=== PATIENT | female | born 1945 | race Caucasian/White ===

== ENCOUNTER 2025-09-13 14:32 | Observation (INO) ==
--- NOTE | 2025-09-13 14:51 | Emergency Department Note ---
Impression & Plan Atrial fibrillation with rapid ventricular response, Acute exacerbation of CHF (congestive heart failure), Elevated brain natriuretic peptide (BNP) level ED Provider Note HISTORY OF PRESENT ILLNESS: Patient is a 80-year-old female presenting with shortness of breath and sweats. Patient reports that she was recently diagnosed with A-fib. She is on Eliquis and metoprolol. Reports for the last 4 days she has been having "cold sweats." She states that "I am soaking through bed sheets and all of my close. States she feels very short of breath. She states that she has had 2 episodes of "heart cramps" over the last 4 days. Her last episode was yesterday. Locates the cramping pain to the left upper chest. Denies any history of DVT or PE. She has noted that her left lower extremity is more swollen than her right lower extremity over the last few days. She is not on any diuretics. She states she feels like she just cannot catch her breath. She states that she is scheduled for an ablation on 09/22/2025. She had called her publications editor who recommended that she take an extra dose of her metoprolol, but given her continued symptoms, she decided to come and get evaluated. She denies any lightheadedness or dizziness. Denies any measured fevers but does report the sweats. Denies any abdominal pain but does report she started having diarrhea today. She states she has been nauseous but has not had any vomiting. Denies any dysuria or hematuria. ROS: as above PHYSICAL EXAM: Constitutional: Patient appears in no acute distress. HENT: Head: Normocephalic and atraumatic. Eyes: EOMI, PERRL Mouth/Throat: Mucous membranes moist. Neck: Trachea midline. Neck supple. Cardiovascular: Tachycardic with irregularly irregular rhythm. No murmurs, rubs or gallops. Intact distal pulses. Pulmonary/Chest: No respiratory distress. Breath sounds clear and equal bilaterally. No wheezes or rales. Abdominal: Abdomen soft, no tenderness, rebound or guarding. Musculoskeletal: No edema, tenderness or deformity noted. Skin: Warm and dry. No rash, erythema, pallor or cyanosis Psychiatric: Appropriate mood and affect for situation. Neurological: Alert and keenly responsive. CN II-XII grossly intact, moving all extremities equally and fully. MDM: - Vitals signs showed hypertension and tachycardia. - History obtained via patient. History as above. - Chronic conditions affecting care: HTN; paroxysmal Afib; reduced EF - Differential diagnoses include, but are not limited to: electrolyte abnormality; dysrhythmia; viral syndrome; CHF exacerbation; pneumonia; ACS - Order placed for continuous cardiac monitoring. At this time, monitor showed rate of 147 bpm with irregular rhythm, per my interpretation. - External medical records reviewed. Echocardiogram dated 08/27/2025 was reviewed. Patient has a moderately reduced EF at 35 to 40%. Cardiology visit note dated 09/09/2025 was reviewed. Patient follows in their clinic for her paroxysmal A-fib and decreased systolic function. She was diagnosed with A-fib in July 2025. She is scheduled for cardioversion in September. She was discontinued on the diltiazem given her low ejection fraction and started on 50 mg of metoprolol succinate daily at that visit. - EKG image interpreted by myself showed atrial fibrillation. Rate 154 bpm. QT 242. No acute ischemic changes. - IV access obtained and laboratory workup obtained. Patient's blood pressure is stable but she is significantly tachycardic with an irregular rhythm consistent with A-fib. Her heart rate is ranging from 130 to 169 bpm. Given her reduced ejection fraction, decision was made to start with Lopressor for attempted rate control. She is given 5 mg of IV Lopressor with minimal improvement in her heart rate from the 160s to the 140s. An additional second dose of 5 mg IV Lopressor ordered and patient was given an extra dose of her metoprolol succinate 50 mg. - Laboratory workup interpreted by myself showed normal WBC; stable electrolytes; elevated BNP (502); normal troponin; normal TSH - Viral respiratory panel negative - CXR image reviewed interpreted by myself showed elevated pulmonary vascular congestion, per my interpretation. Radiology notes CHF exacerbation and small bilateral pleural effusions. - Patient's HR remains 110-130 bpm with irregular rhythm. No significant electrolyte abnormalities. Given 20 mg of IV Lasix for initiation of diuresis. Will discuss case with hospitalist service for further evaluation and management. - Discussion was had with spring encaser about patient's case and need for admission - Hospitalist, Dr. Castellanos, consulted for admission at 16:50. - Patient admitted to [facility] hospitalist service for further evaluation and management. I have personally spent 43 minutes of critical care time in the direct management of this patient. This includes bedside care, interpretation of diagnostic studies, and testing, discussion with consultants, patient, and family members, and other required patient management activities. This 43 minutes is in excess of all separately billable procedures. ASSESSMENT AND PLAN: Diagnosis: Afib with RVR; acute CHF exacerbation; elevated BNP Plan: admit Past Med/Surg History Problem List (Updated 09/13/25 @ 16:42 by Sierra Rivers MD) Elevated brain natriuretic peptide (BNP) level (Acute) Acute exacerbation of CHF (congestive heart failure) (Acute) Atrial fibrillation with rapid ventricular response (Acute) Atrial fibrillation History of postmenopausal HRT Vasomotor symptoms due to menopause Chronic, continuous use of opioids Left lower lobe pulmonary nodule Hypertension Insomnia Arthritis Interstitial cystitis Medical History (Updated 09/13/25 @ 16:42 by Sierra Rivers MD) No pertinent past medical history Surgical History (Updated 06/26/25 @ 09:09 by Leia Pérez MD, FACOG) H/O wisdom tooth extraction S/P total knee arthroplasty S/P FRANNIE-BSO age 59 Hx of tonsillectomy Family History Aunt Breast cancer Mother Myocardial infarction Hypertension Father Prostate cancer Diabetes Hypertension Sister Hypertension Denies family history of Ovarian cancer Colorectal cancer Social History Smoking Status: Never smoker Second Hand Exposure: No; Do You Dip or Chew Tobacco: No; Hx Alcohol Use: Yes Alcohol type: wine Alcohol Intake Frequency: Monthly or Less Hx Substance Use: No Preferred Language: Serbian Communication Ability: Effective Visual Impairment: No Limitations Hearing Ability: Normal Property Custodian Required: No marital status: / Current Living Situation: Significant Other current occupational status: retired current occupation: used to work as a dietary worker, 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 [place] How many Children do You have: 2 Feels Safe at Home: Yes Childhood Exposure to Second-Hand Smoke: Yes Diet: regular caffeine: Yes during the past year weight has: remained stable Dental Care, Regularly: No Physical Activity Frequency: Daily Seatbelt Use: always Sunscreen Use: Yes (sometimes ) Assistive Devices: Glasses Allergies Allergies Allergy/AdvReac Type Severity Reaction Status Date / Time No Known Allergies Allergy Verified 09/09/25 14:08 Home Meds Home Medications Medication Instructions Recorded Confirmed sodium bicarbonate 4.2 % 0 meq UD 03/24/24 09/13/25 intravenous solution amitriptyline 150 mg tablet 150 mg PO HS 09/13/25 09/13/25 cyclobenzaprine 10 mg tablet 10 mg PO HS PRN Muscle Spasm 09/13/25 09/13/25 dicyclomine 10 mg capsule 10 mg PO BID PRN Abdominal 09/13/25 09/13/25 Discomfort hydroxyzine HCl 50 mg tablet 50 mg PO DAILY PRN cystitis 09/13/25 09/13/25 lidocaine HCl 20 mg/mL (2 %) See Rx Instructions .Route .COMPLEX 09/13/25 09/13/25 injection solution meloxicam 15 mg tablet 15 mg PO DAILY PRN Pain 09/13/25 09/13/25 metoprolol succinate 50 mg 50 mg PO HS 09/13/25 09/13/25 tablet,extended release 24 hr pentosan polysulfate sodium 100 mg 100 mg PO QAM 09/13/25 09/13/25 capsule (Elmiron) pentosan polysulfate sodium 100 mg 200 mg PO HS 09/13/25 09/13/25 capsule (Elmiron) ropinirole 0.25 mg tablet 0.125 mg PO HS 09/13/25 09/13/25 Previous Rx's Medication Instructions Recorded SpeediCath Standard - Lubricated #10 ea 05/11/22 8/2.7 mm needle (disp) 18 G 18 gauge x 1 #120 ea 05/24/22 1/2" (BD PrecisionGlide Non-Sterile) syringe with needle, safety 10 mL #50 ea 05/25/23 21 gauge x 1 1/2" (Easy Touch SheathLock Syringe with Needle) syringe (disposable) 10 mL (BD #120 ea 10/01/24 Luer-Renee Tip Control Syringe) syringe (disposable) 60 mL (Easy #100 ea 10/01/24 [place]odi[place] Catheter Tip Syringe) sulfamethoxazole 800 1 tab PO BID PRN dental visit #60 12/05/24 mg-trimethoprim 160 mg tablet tabs (Bactrim DS) Vivelle-Dot 0.075 mg/24 hr 1 patch transdermal .TWICE WEEKLY 06/12/25 transdermal patch (estradiol) #8 ea methenam 118 mg-m.blue 10 See Rx Instructions .Route 08/05/25 mg-s.phos 40.8 mg-p.salic 36 .COMPLEX #30 caps mg-hyos capsule (Uro-MP) apixaban 5 mg tablet (Eliquis) 5 mg PO BID #60 tabs 08/11/25 oxycodone 20 mg tablet,crush 20 mg PO TID PRN pain (scale score 08/14/25 resistant,extended release 12 hr 7-10) #90 tabs Results & Data (ED) Vital Signs Vital Signs - 24 hr 09/13/25 14:33 09/13/25 14:47 09/13/25 14:53 Temperature 36.7 C Temperature Source Temporal Artery Scan Pulse Rate 139 H 143 H 147 H Pulse Rate [Apical] Respiratory Rate 18 21 Respiratory Effort / Characteristics Non-Labored Spontaneous Respiratory Depth Normal Respiratory Pattern Regular Blood Pressure 145/109 H 156/123 H Blood Pressure [Right Arm] Blood Pressure Mean 121 Blood Pressure Mean [Right Arm] Blood Pressure Position [Right Arm] Pulse Oximetry 95 Oxygen Delivery Method Room Air Sepsis Recent Fever Within 48 Hours No Sepsis New/Unexplained Change in Mental Status N/A Sepsis Action Taken by Nursing No Action Required 09/13/25 15:06 09/13/25 15:17 09/13/25 15:17 Temperature Temperature Source Pulse Rate 133 H 133 H 121 H Pulse Rate [Apical] Respiratory Rate Respiratory Effort / Characteristics Respiratory Depth Respiratory Pattern Blood Pressure 135/106 H 135/106 H 121/96 Blood Pressure [Right Arm] Blood Pressure Mean Blood Pressure Mean [Right Arm] Blood Pressure Position [Right Arm] Pulse Oximetry Oxygen Delivery Method Sepsis Recent Fever Within 48 Hours Sepsis New/Unexplained Change in Mental Status Sepsis Action Taken by Nursing 09/13/25 15:18 09/13/25 15:30 09/13/25 15:45 Temperature Temperature Source Pulse Rate Pulse Rate [Apical] 122 H 106 H Respiratory Rate 12 16 Respiratory Effort / Characteristics Non-Labored Spontaneous Non-Labored Spontaneous Respiratory Depth Normal Respiratory Pattern Regular Blood Pressure Blood Pressure [Right Arm] 121/96 132/100 Blood Pressure Mean Blood Pressure Mean [Right Arm] 104 110 Blood Pressure Position [Right Arm] Lying Lying Pulse Oximetry 98 97 94 Oxygen Delivery Method Room Air Room Air Room Air Sepsis Recent Fever Within 48 Hours Sepsis New/Unexplained Change in Mental Status Sepsis Action Taken by Nursing 09/13/25 16:13 Temperature Temperature Source Pulse Rate 116 H Pulse Rate [Apical] Respiratory Rate Respiratory Effort / Characteristics Respiratory Depth Respiratory Pattern Blood Pressure Blood Pressure [Right Arm] Blood Pressure Mean Blood Pressure Mean [Right Arm] Blood Pressure Position [Right Arm] Pulse Oximetry Oxygen Delivery Method Sepsis Recent Fever Within 48 Hours Sepsis New/Unexplained Change in Mental Status Sepsis Action Taken by Nursing Laboratory Data 09/13/25 15:42 09/13/25 15:42 Lab Results 09/13/25 09/13/25 Range/Units 14:43 15:42 WBC 8.07 (4.8-10.8) K/ul RBC 4.92 (4.20-5.40) M/uL Hgb 14.7 (12.0-16.0) g/dL Hct 44.8 (37.0-47.0) % MCV 91.1 (80.0-100.0) fL MCH 29.9 (25.0-34.0) pg MCHC 32.8 (32.0-36.0) g/dL RDW Std Deviation 46.3 (36.4-46.3) fL RDW Coeff of Adeola 14.0 (11.5-14.5) % Plt Count 191 (130-400) K/uL MPV 12.3 (9.4-12.4) fL Immature Gran % (Auto) 0.6 % Neut % (Auto) 61.5 % Lymph % (Auto) 25.8 % [place] % (Auto) 9.9 % Eos % (Auto) 1.5 % Baso % (Auto) 0.7 % Neut # (Auto) 4.96 (1.40-6.50) K/uL Lymph # (Auto) 2.08 (1.20-3.40) K/uL [place] # (Auto) 0.80 H (0.11-0.59) K/uL Eos # (Auto) 0.12 (0.00-0.50) K/uL Baso # (Auto) 0.06 (0.00-0.20) K/uL Immature Gran # (Auto) 0.05 (0.01-0.20) K/uL Sodium 137 (136-145) mmol/L Potassium 4.8 (3.5-5.1) mmol/L Chloride 104 (98-107) mmol/L Carbon Dioxide 26 (21-32) mmol/L Anion Gap 7 (3-11) BUN 13 (6-23) mg/dl Creatinine 0.85 (0.6-1.2) mg/dl Est Cr Clr Drug Dosing 60.0 ml/min eGFR 69.65 BUN/Creatinine Ratio 15.3 (10-20) Glucose 136 H (70-99(Fasting)) mg/dl Calcium 9.0 (8.6-10.3) mg/dl Magnesium 1.8 (1.7-2.4) mg/dl Total Bilirubin 0.8 (0.2-1.0) mg/dl AST 25 (13-39) U/L ALT 19 (7-52) U/L Alkaline Phosphatase 68 (34-104) U/L Troponin I High Sens 8.1 (0-14) pg/ml B-Natriuretic Peptide 502 H (0-100) pg/ml Total Protein 6.4 (6.0-8.3) gm/dl Albumin 4.0 (3.4-5.0) gm/dl Globulin 2.4 L (2.5-4.0) gm/dl Albumin/Globulin Ratio 1.7 (0.9-2) Lipase 5 L (11-82) U/L TSH 2.068 (0.300-4.500) uIu/ml Adenovirus (PCR) Not Detected (NotDetected) B. pertussis DNA (PCR) Not Detected (NotDetected) B.parapertussis DNA PCR Not Detected (NotDetected) C. pneumoniae DNA (PCR) Not Detected (NotDetected) Coronavirus OC43 (PCR) Not Detected (NotDetected) Coronavirus HKU1 (PCR) Not Detected (NotDetected) Coronavirus 229E (PCR) Not Detected (NotDetected) SARS-CoV-2 (PCR) Not Detected (NotDetected) Coronavirus NL63 (PCR) Not Detected (NotDetected) Human Metapneumovir PCR Not Detected (NotDetected) Influenza Type A (PCR) Not Detected (NotDetected) Influenza Type B (PCR) Not Detected (NotDetected) M. pneumoniae (PCR) Not Detected (NotDetected) Parainfluenza 1 (PCR) Not Detected (NotDetected) Parainfluenza 2 (PCR) Not Detected (NotDetected) Parainfluenza 3 (PCR) Not Detected (NotDetected) Parainfluenza 4 (PCR) Not Detected (NotDetected) RSV (PCR) Not Detected (NotDetected) Entero/Rhino (PCR) Not Detected (NotDetected) Administered Medications Discontinued Medications Furosemide (Furosemide Inj 20 Mg/2 Ml Vial) 20 mg IV ONE ONE Stop: 09/13/25 16:40 Last Admin: 09/13/25 16:42 Dose: 20 mg Documented By: [facility] Metoprolol Succinate (Metoprolol Succ 50mg Ext Rel Tab) 50 mg PO NOW STA Stop: 09/13/25 14:55 Last Admin: 09/13/25 15:20 Dose: 50 mg Documented By: [facility] Metoprolol Tartrate (Metoprolol Tartrate 1 Mg/Ml Vial) 5 mg IV NOW STA Stop: 09/13/25 14:38 Last Admin: 09/13/25 14:53 Dose: 5 mg Documented By: [facility] Metoprolol Tartrate (Metoprolol Tartrate 1 Mg/Ml Vial) 5 mg IV NOW STA Stop: 09/13/25 14:55 Last Admin: 09/13/25 15:06 Dose: 5 mg Documented By: [facility] Imaging Data Radiologist's Impression: Chest X-Ray 09/13/25 14:37 Exam: AP Portable Chest Exam reason: Nonspecific chest pain Comparison: No prior examinations available for comparison Technique: A single AP portable view of the chest was obtained Findings: The lungs are well-expanded. There is mild acute prominence of the central pulmonary vasculature. There is mild cardiomegaly. The cardiac and mediastinal silhouettes are within normal limits. There is no pneumothorax and no acute bony abnormalities are seen. Impression: 1. CHF exacerbation. 2. Small bilateral pleural effusions. Electronically signed by Chirag Beck 09-13-2025 3:42 PM Discharge Plan Visit Data Chief Complaint: Cardiac Assessment Stated Complaint: HEART- AFIB ED Provider: Sierra Rivers Discharge Problem: Atrial fibrillation with rapid ventricular response, Acute exacerbation of CHF (congestive heart failure), Elevated brain natriuretic peptide (BNP) level Patient Disposition: Admitted As Inpatient Condition: Fair Forms Stand Alone Forms: [facility] Prescriptions Prescriptions: No Action (DME) SpeediCath Standard - Lubricated 8/2.7 mm See Rx Instructions .Route .MEDSUPPLY Qty: 10 3RF Rx Instructions: As directed (DME) BD PrecisionGlide Non-Sterile 18 gauge x 1 1/2" needle See Rx Instructions .Route Qty: 120 0RF Rx Instructions: use twice daily (DME) BD Luer-Renee Tip Control Syring 10 mL syringe See Rx Instructions .Route Qty: 120 0RF Rx Instructions: twice daily (DME) syringe (disposable) [Easy [place] Catheter Tip Syring] 60 mL syringe See Rx Instructions .Route Qty: 100 3RF Rx Instructions: NEEDED OR DIRECTED estradiol [Vivelle-Dot] 0.075 mg/24 hr patch semiweekly 1 patch transdermal .TWICE WEEKLY Qty: 8 0RF Uro-MP 118-10-40.8-36 mg capsule See Rx Instructions .ROUTE .COMPLEX Qty: 30 3RF Dose Instruction: TAKE ONE CAPSULE BY MOUTH THREE TIMES A DAY NEEDED FOR BLADDER PAIN. ADMNISTER WITH PLENTY OF FLUIDS Rx Instructions: TAKE ONE CAPSULE BY MOUTH THREE TIMES A DAY NEEDED FOR BLADDER PAIN. ADMNISTER WITH PLENTY OF FLUIDS oxycodone 20 mg tablet,oral only,ext.rel.12 hr 20 mg PO TID PRN (Reason: pain (scale score 7-10)) Qty: 90 0RF Hold Instructions: Home Medication placed on hold at Doctor's office (DME) Easy Touch SheathLock Syrg-Ndl 10 mL 21 gauge x 1 1/2" syringe See Rx Instructions .Route Qty: 50 3RF Rx Instructions: USE NEEDED OR DIRECTED sodium bicarbonate 4.2 % solution 0 meq UD Rx Instructions: used vaginally sulfamethoxazole-trimethoprim [Bactrim DS] 800-160 mg tablet 1 tab PO BID PRN (Reason: dental visit) Qty: 60 11RF Eliquis 5 mg tablet 5 mg PO BID Qty: 60 2RF hydroxyzine HCl 50 mg tablet 50 mg PO DAILY PRN (Reason: cystitis) ropinirole 0.25 mg tablet 0.125 mg PO HS dicyclomine 10 mg capsule 10 mg PO BID PRN (Reason: Abdominal Discomfort) cyclobenzaprine 10 mg tablet 10 mg PO HS PRN (Reason: Muscle Spasm) amitriptyline 150 mg tablet 150 mg PO HS meloxicam 15 mg tablet 15 mg PO DAILY PRN (Reason: Pain) Elmiron 100 mg capsule 200 mg PO HS Elmiron 100 mg capsule 100 mg PO QAM metoprolol succinate 50 mg tablet extended release 24 hr 50 mg PO HS lidocaine HCl 20 mg/mL (2 %) solution See Rx Instructions .ROUTE .COMPLEX Rx Instructions: used vaginally Referrals Referrals: Jerome Aaron DO [Primary Care Provider] -
[2025-09-13] MEDS: METOPROLOL TARTRATE 1 MG/ML VIAL IV STA ×2 (14:53→15:06)
[2025-09-13] MEDS: METOPROLOL SUCC 50MG EXT REL TAB PO STA (15:20)
--- NOTE | 2025-09-13 15:42 | XRay Report ---
Exam: AP Portable Chest Exam reason: Nonspecific chest pain Comparison: No prior examinations available for comparison Technique: A single AP portable view of the chest was obtained Findings: The lungs are well-expanded. There is mild acute prominence of the central pulmonary vasculature. There is mild cardiomegaly. The cardiac and mediastinal silhouettes are within normal limits. There is no pneumothorax and no acute bony abnormalities are seen. Impression: 1. CHF exacerbation. 2. Small bilateral pleural effusions. Electronically signed by Chirag Beck 09-13-2025 3:42 PM
[2025-09-13 15:55] LABS: Hematocrit (blood only) 44.8 % (37.0-47.0); Hemoglobin 14.7 g/dL (12.0-16.0); Immature Granulocytes # (auto) 0.05 K/uL (0.01-0.20); Immature Granulocytes % (auto) 0.6 %; Mean Corpuscular Hemoglobin 29.9 pg (25.0-34.0); Mean Corpuscular Volume 91.1 fL (80.0-100.0); Platelet Count 191 K/uL (130-400); RDW Standard Deviation 46.3 fL (36.4-46.3); Red Blood Count 4.92 M/uL (4.20-5.40); White Blood Count 8.07 K/ul (4.8-10.8)
[2025-09-13 16:05] LABS: Chlamydia pneumoniae PCR Not Detected (NotDetected); Coronavirus 229E PCR Not Detected (NotDetected); Coronavirus CoV-2 (COVID19)PCR Not Detected (NotDetected); Coronavirus HKU1 PCR Not Detected (NotDetected); Coronavirus NL63 PCR Not Detected (NotDetected); Coronavirus OC43PCR Not Detected (NotDetected); Human Metapneumovirus PCR Not Detected (NotDetected); Parainfluenza Virus 1 PCR Not Detected (NotDetected); Parainfluenza Virus 2 PCR Not Detected (NotDetected); Parainfluenza Virus 3 PCR Not Detected (NotDetected); Parainfluenza Virus 4 PCR Not Detected (NotDetected); Respiratory Syncytial VirusPCR Not Detected (NotDetected); Rhinovirus/Enterovirus PCR Not Detected (NotDetected)
[2025-09-13 16:14] LABS: Alanine Aminotransferase 19.0 U/L (7-52); Albumin Globulin Ratio 1.7 (0.9-2); Albumin Level 4.0 gm/dl (3.4-5.0); Alkaline Phosphatase 68.0 U/L (34-104); Anion Gap 7.0 (3-11); Bilirubin,Total 0.8 mg/dl (0.2-1.0); Blood Urea Nitrogen 13.0 mg/dl (6-23); Calcium 9.0 mg/dl (8.6-10.3); Carbon Dioxide 26.0 mmol/L (21-32); Chloride 104.0 mmol/L (98-107); Creatinine Clr Calc Pharmacy 60.0 ml/min; Globulin 2.4 gm/dl (2.5-4.0); Glucose 136.0 mg/dl (70-99(Fasting)); Lipase 5.0 U/L (11-82); Magnesium 1.8 mg/dl (1.7-2.4); Potassium 4.8 mmol/L (3.5-5.1); Sodium 137.0 mmol/L (136-145); Total Protein 6.4 gm/dl (6.0-8.3)
[2025-09-13 16:29] LABS: Thyroid Stimulating Hormone 2.068 uIu/ml (0.300-4.500)
[2025-09-13] MEDS: FUROSEMIDE INJ 20 MG/2 ML VIAL IV ONE (16:42)
--- NOTE | 2025-09-13 16:51 | History & Physical Report ---
Date of Service September 13, 2025 Assessment & Plan (1) Atrial fibrillation with rapid ventricular response: (2) Acute systolic CHF (congestive heart failure): (3) Hypertension: (4) Interstitial cystitis: (5) Night sweats: Plan Pleasant 80yo female with recently diagnosed atrial fibrillation on 08/11/25 at her PCP's office - anticoagulated with Eliquis also starting 08/11/25, newly- found systolic CHF with EF 35-40% on echo 08/27/25, interstitial cystitis, chronic narcotic dependence, pre-DM with a1c of 5.8%, and HTN who presents from home with worsening dyspnea, dyspnea on exertion, orthopnea, severe night-sweats x 4 days, weight gain of 12-15 pounds over the last 2-3 months, abdominal swelling, and palpitations. The 08/11/25 office note states she had been having palpitations for several weeks prior to that visit as well as fatigue/dyspnea. #a.fib with RVR - -has been taking Eliquis since 08/11/25 after the a.fib was first diagnosed by her PCP -was initially on diltiazem CD starting late July, but once echo showed depressed EF in early August she was changed to meto succ 50mg daily -she was scheduled for outpatient elective cardioversion on 09/22/25 -she had a recent outpatient Holter monitor showing 100% a.fib burden with poor rate control, sometimes with HRs as high as 170s -I believe that the uncontrolled a.fib is the cause of her cardiomyopathy/depressed EF -despite 10mg of IV lopressor & meto succ 50mg x 1 her rates in the ER were 120s to 150s at rest -thus, as a temporary measure, will place on diltiazem drip to achieve better rate control -cont meto succ 50mg daily -cont Eliquis -will ask [facility] to see in consult tomorrow -will keep NPO after MN tonight in the event she could undergo a cardioversion -if she is indeed cardioverted successfully would continue the meto succ but d/c any further diltiazem -of note - TSH, K, and mag are all wnl #acute systolic CHF - -outpatient echo 2 weeks ago with EF 35-40% -suspect her cardiomyopathy is 2nd to uncontrolled a.fib -she does have a family history of CAD thus I cannot fully rule out ischemia contributing to the depressed EF -she does report clinical symptoms of pulm edema/CHF and on exam (as well as cxr) she has evidence of decompensated CHF -s/p lasix 20mg IV x 1 in ER -suspect she will need additional diuresis tomorrow -check BMP/mag in am -cont meto succ -ideally she is initiated on Entresto in the near-future #night-sweats - -I suspect this is due to severe tachycardia from her a.fib -suspect that her rates have been >150 at times the last few days at home -she does not have any infectious symptoms otherwise -resp BioFire is negative -could the sweats be a symptom of ischemia? -I do think, given her mother's CAD, that at some point she should have ischemic work-up -fortunately her troponin is negative despite numerous days of symptoms #interstitial cystitis - -cont all of her usual medicines for such #chronic narcotic dependence - -takes Oxycontin ER 20mg TID prn - will continue such -verified with the PDMP that indeed this is her correct formulation & dosing #DVT proph - -Eliquis 5mg BID #HTN - -cont meto succ -diltiazem drip will afford BP control -diuresis will help with BP control -ultimately she will need Entresto which will help with HTN management as well History of Present Illness Chief Complaint: dyspnea, night-sweats Primary Care Provider: DO Cande Bates 80yo female with recently diagnosed atrial fibrillation on 08/11/25 at her PCP's office (on anticoagulation with Eliquis also starting 08/11/25), newly-found systolic CHF with EF 35-40% on echo 08/27/25, interstitial cystitis, chronic narcotic dependence, pre-DM with a1c of 5.8%, and HTN who presents from home with worsening dyspnea, dyspnea on exertion, orthopnea, severe night-sweats x 4 days, weight gain of 12-15 pounds over the last 2-3 months, abdominal swelling, and palpitations. The 08/11/25 office note states she had been having palpitations for several weeks prior to that visit as well as fatigue/dyspnea. Ms Keene was referred to [facility] and she was recently switched from diltiazem to metoprolol succinate after her EF was found to be depressed. She is not on diuretics at home. An elective cardioversion was planned for September 22 here at [facility] for the a.fib. Despite the severe sweats she has been eating fine and denies any fevers or rigors. Denies discrete chest pain episodes although she does have palpitations quite routinely from the a.fib. She reports good compliance with her Eliquis twice daily. Allergies Allergy/AdvReac Type Severity Reaction Status Date / Time No Known Allergies Allergy Verified 09/09/25 14:08 Home Medications Medication Instructions Recorded Confirmed Type SpeediCath Standard - Lubricated #10 ea 05/11/22 09/13/25 Rx 8/2.7 mm needle (disp) 18 G 18 gauge x 1 #120 ea 05/24/22 09/13/25 Rx 1/2" (BD PrecisionGlide Non-Sterile) syringe with needle, safety 10 mL #50 ea 05/25/23 09/13/25 Rx 21 gauge x 1 1/2" (Easy Touch SheathLock Syringe with Needle) sodium bicarbonate 4.2 % 0 meq UD 03/24/24 09/13/25 History intravenous solution syringe (disposable) 10 mL (BD #120 ea 10/01/24 09/13/25 Rx Luer-Renee Tip Control Syringe) syringe (disposable) 60 mL (Easy #100 ea 10/01/24 09/13/25 Rx [place] Catheter Tip Syringe) sulfamethoxazole 800 1 tab PO BID PRN dental visit #60 12/05/24 09/13/25 Rx mg-trimethoprim 160 mg tablet tabs (Bactrim DS) Vivelle-Dot 0.075 mg/24 hr 1 patch transdermal .TWICE WEEKLY 06/12/25 09/13/25 Rx transdermal patch (estradiol) #8 ea methenam 118 mg-m.blue 10 See Rx Instructions .Route 08/05/25 09/13/25 Rx mg-s.phos 40.8 mg-p.salic 36 .COMPLEX #30 caps mg-hyos capsule (Uro-MP) apixaban 5 mg tablet (Eliquis) 5 mg PO BID #60 tabs 08/11/25 09/13/25 Rx oxycodone 20 mg tablet,crush 20 mg PO TID PRN pain (scale score 08/14/25 09/13/25 Rx resistant,extended release 12 hr 7-10) #90 tabs amitriptyline 150 mg tablet 150 mg PO HS 09/13/25 09/13/25 History cyclobenzaprine 10 mg tablet 10 mg PO HS PRN Muscle Spasm 09/13/25 09/13/25 History dicyclomine 10 mg capsule 10 mg PO BID PRN Abdominal 09/13/25 09/13/25 History Discomfort hydroxyzine HCl 50 mg tablet 50 mg PO DAILY PRN cystitis 09/13/25 09/13/25 History lidocaine HCl 20 mg/mL (2 %) See Rx Instructions .Route .COMPLEX 09/13/25 09/13/25 History injection solution meloxicam 15 mg tablet 15 mg PO DAILY PRN Pain 09/13/25 09/13/25 History metoprolol succinate 50 mg 50 mg PO HS 09/13/25 09/13/25 History tablet,extended release 24 hr pentosan polysulfate sodium 100 mg 100 mg PO QAM 09/13/25 09/13/25 History capsule (Elmiron) pentosan polysulfate sodium 100 mg 200 mg PO HS 09/13/25 09/13/25 History capsule (Elmiron) ropinirole 0.25 mg tablet 0.125 mg PO HS 09/13/25 09/13/25 History Past Med/Surg History Problem List (Updated 09/13/25 @ 20:02 by Richard Castellanos MD) Night sweats Elevated brain natriuretic peptide (BNP) level (Acute) Acute exacerbation of CHF (congestive heart failure) (Acute) Atrial fibrillation with rapid ventricular response (Acute) Medical History (Updated 09/13/25 @ 20:02 by Richard Castellanos MD) Acute systolic CHF (congestive heart failure) Interstitial cystitis History of postmenopausal HRT Arthritis Insomnia Hypertension Left lower lobe pulmonary nodule Chronic, continuous use of opioids Vasomotor symptoms due to menopause Atrial fibrillation No pertinent past medical history Surgical History H/O wisdom tooth extraction S/P total knee arthroplasty S/P FRANNIE-BSO age 59 Hx of tonsillectomy Family History (Updated 09/13/25 @ 20:03 by Richard Castellanos MD) Aunt Breast cancer Mother , age 94 Myocardial infarction Hypertension Coronary heart disease CABG at age 59 Father Prostate cancer Diabetes Hypertension Sister Hypertension Valvular heart disease Grandfather (Paternal) Cancer Grandmother (Paternal) Cancer Denies family history of Ovarian cancer Colorectal cancer Social History (Updated 09/13/25 @ 20:04 by Richard Castellanos MD) Smoking Status: Never smoker Second Hand Exposure: No; Do You Dip or Chew Tobacco: No; Hx Alcohol Use: Yes Alcohol type: wine Alcohol Intake Frequency: Monthly or Less Hx Substance Use: No Preferred Language: [place] Islander Communication Ability: Effective Visual Impairment: No Limitations Hearing Ability: Normal Eating Disorder Psychologist Required: No Beliefs That Will Affect Care: None marital status: / Current Living Situation: Significant Other current occupational status: retired current occupation: used to work as a engineering secretary, 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 [place] How many Children do You have: 2 Other Information That Helps Us Care for You: No Feels Safe at Home: Yes Safety Concerns: Feels Safe At This Time Childhood Exposure to Second-Hand Smoke: Yes Diet: regular caffeine: Yes during the past year weight has: remained stable Dental Care, Regularly: No Physical Activity Frequency: Daily Seatbelt Use: always Sunscreen Use: Yes (sometimes ) Assistive Devices: Glasses Review of Systems Review of Systems: gen - no fevers or chills; night-sweats x 4 days; weight gain - 10-15 pounds - last 2-3 months eyes - no ocular changes HENT - no URI symptoms CV - palpitations, but no discrete chest pain; +orthopnea; +edema pulm - RODRIGUEZ for several weeks; dyspnea at rest last 1-2 days GI - abdominal swelling; slight nausea last few days; no vomiting; no diarrhea; no blood in stool - chronic interstitial cystitis symptoms musculo - no joint pains endo - no full-blown DM skin - no rash neuro - no headache, no paresthesias psych - normal moods Physical Exam Physical Exam: gen - lying comfortably in bed, NAD, pleasant eyes - PERRL HENT - MMM, no lesions neck - JVD present; no lymph nodes; no goiter heart - tachy, s1 s2, irregularly irregular, no murmur lungs - b/l basilar rales, no wheezes, no increased work of breathing abd - soft NT ND BS+; +hepatojugular reflex ext - left leg is larger than right leg, 1+ edema b/l but worse on left; pulses b/l feet 2+ neuro - strength 5/5 x 4 exts; DTRs 2+ b/l upper and lower exts skin - no rash psych - a/o x 3 Results & Data Results & Data Vital Signs (Past 12 Hours) Vital Signs Temp Pulse Pulse Resp BP BP Pulse Ox 09/13/25 16:13 116 H 09/13/25 15:45 94 09/13/25 15:30 106 H 16 132/100 97 09/13/25 15:18 122 H 12 121/96 98 09/13/25 15:17 121 H 121/96 09/13/25 15:17 133 H 135/106 H 09/13/25 15:06 133 H 135/106 H 09/13/25 14:53 147 H 156/123 H 09/13/25 14:47 143 H 21 09/13/25 14:33 36.7 C 139 H 18 145/109 H 95 O2 Del Method 09/13/25 16:13 09/13/25 15:45 Room Air 09/13/25 15:30 Room Air 09/13/25 15:18 Room Air 09/13/25 15:17 09/13/25 15:17 09/13/25 15:06 09/13/25 14:53 09/13/25 14:47 09/13/25 14:33 Room Air Laboratory Results Laboratory Results - last 24 hr 09/13/25 09/13/25 09/13/25 14:43 15:42 17:21 WBC 8.07 RBC 4.92 Hgb 14.7 Hct 44.8 MCV 91.1 MCH 29.9 MCHC 32.8 RDW Std Deviation 46.3 RDW Coeff of [place] 14.0 Plt Count 191 MPV 12.3 Immature Gran % (Auto) 0.6 Neut % (Auto) 61.5 Lymph % (Auto) 25.8 [place] % (Auto) 9.9 Eos % (Auto) 1.5 Baso % (Auto) 0.7 Neut # (Auto) 4.96 Lymph # (Auto) 2.08 [place] # (Auto) 0.80 H Eos # (Auto) 0.12 Baso # (Auto) 0.06 Immature Gran # (Auto) 0.05 PT Cancelled 12.6 H INR Cancelled 1.2 H Sodium 137 Potassium 4.8 Chloride 104 Carbon Dioxide 26 Anion Gap 7 BUN 13 Creatinine 0.85 Est Cr Clr Drug Dosing 60.0 eGFR 69.65 BUN/Creatinine Ratio 15.3 Glucose 136 H Calcium 9.0 Magnesium 1.8 Total Bilirubin 0.8 AST 25 ALT 19 Alkaline Phosphatase 68 Troponin I High Sens 8.1 B-Natriuretic Peptide 502 H Total Protein 6.4 Albumin 4.0 Globulin 2.4 L Albumin/Globulin Ratio 1.7 Lipase 5 L TSH 2.068 Urine Color Yellow Urine Appearance Clear Urine pH 6.5 Ur Specific [place] 1.007 Urine Protein Negative Urine Glucose (UA) Negative Urine Ketones Negative Urine Blood Negative Urine Nitrite Negative Urine Bilirubin Negative Urine Urobilinogen Negative Ur Leukocyte Esterase Negative Urine Comment Adenovirus (PCR) Not Detected B. pertussis DNA (PCR) Not Detected B.parapertussis DNA PCR Not Detected C. pneumoniae DNA (PCR) Not Detected Coronavirus OC43 (PCR) Not Detected Coronavirus HKU1 (PCR) Not Detected Coronavirus 229E (PCR) Not Detected SARS-CoV-2 (PCR) Not Detected Coronavirus NL63 (PCR) Not Detected Human Metapneumovir PCR Not Detected Influenza Type A (PCR) Not Detected Influenza Type B (PCR) Not Detected M. pneumoniae (PCR) Not Detected Parainfluenza 1 (PCR) Not Detected Parainfluenza 2 (PCR) Not Detected Parainfluenza 3 (PCR) Not Detected Parainfluenza 4 (PCR) Not Detected RSV (PCR) Not Detected Entero/Rhino (PCR) Not Detected Diagnostic Findings Chest X-Ray 09/13/25 14:37 Exam: AP Portable Chest Exam reason: Nonspecific chest pain Comparison: No prior examinations available for comparison Technique: A single AP portable view of the chest was obtained Findings: The lungs are well-expanded. There is mild acute prominence of the central pulmonary vasculature. There is mild cardiomegaly. The cardiac and mediastinal silhouettes are within normal limits. There is no pneumothorax and no acute bony abnormalities are seen. Impression: 1. CHF exacerbation. 2. Small bilateral pleural effusions. Electronically signed by Chirag Beck 09-13-2025 3:42 PM Venous Doppler Study 09/13/25 15:56 EXAMINATION: Extremity ultrasound lower extremity LEFT CLINICAL HISTORY: Left lower extremity swelling and left calf PRIORS: None TECHNIQUE: Ultrasound interrogation of the deep venous structures was performed with grayscale, color Doppler, compression and augmentation. FINDINGS: The left common femoral, superficial femoral, saphenous, popliteal and tibial veins demonstrate normal compressibility, frequency and augmentation. IMPRESSION: No sonographic evidence of deep venous thrombosis in the LEFT lower extremity Electronically signed by Talia Mcadams 09-13-2025 5:52 PM ECG Additional Comments: EKG - my reading - a.fib with RVR; ST segment depression laterally Code Status & VTE Plan Code Status full code PG Care Time/CCT Total # of Minutes Spent Total Time Spent with Patient: Total time spent is greater than 50% in coordination of care (as documented) at patient's floor/unit and/or counseling patient: Coding Level of Care Code 67005 INT INP/OBS CARE 3/75MIN Diagnoses Atrial fibrillation with rapid ventricular response I48.91 Acute systolic CHF (congestive heart failure) I50.21 Primary hypertension I10 Hypertension type: primary hypertension Interstitial cystitis N30.10 Night sweats R61 (3) Hypertension Hypertension type: primary hypertension Qualified Code(s): I10 - Essential (primary) hypertension
[2025-09-13 17:47] LABS: Appearance Urine Clear (Clear); Glucose Urine UA Negative (Negative)
--- NOTE | 2025-09-13 17:53 | Ultrasound Report ---
EXAMINATION: Extremity ultrasound lower extremity LEFT CLINICAL HISTORY: Left lower extremity swelling and left calf PRIORS: None TECHNIQUE: Ultrasound interrogation of the deep venous structures was performed with grayscale, color Doppler, compression and augmentation. FINDINGS: The left common femoral, superficial femoral, saphenous, popliteal and tibial veins demonstrate normal compressibility, frequency and augmentation. IMPRESSION: No sonographic evidence of deep venous thrombosis in the LEFT lower extremity Electronically signed by Talia Mcadams 09-13-2025 5:52 PM
[2025-09-13 18:01] LABS: INR 1.2 (0.9-1.1); Prothrombin Time 12.6 Seconds (9.0-12.0)
[2025-09-13] MEDS ORDERED: STAT IV Infusion **Titration per Protocol STA (18:27)
[2025-09-13] MEDS ORDERED: DICYCLOMINE HCL 10 MG CAP PO PRN (19:08)
[2025-09-13] MEDS ORDERED: CYCLOBENZAPRINE HCL 10 MG TAB PO PRN (19:08)
[2025-09-13] MEDS ORDERED: ACETAMINOPHEN 325 MG TAB PO PRN (19:08)
[2025-09-13] MEDS ORDERED: ONDANSETRON INJ 2 MG/ML 2 ML VIAL IV PRN (19:08)
[2025-09-13] MEDS ORDERED: MELATONIN 3 MG TAB PO PRN (19:08)
--- NOTE | 2025-09-13 20:19 | Electrocardiogram Report ---
Test Reason : Blood Pressure : */* mmHG Vent. Rate : 154 BPM Atrial Rate : * BPM P-R Int : * ms QRS Dur : 90 ms QT Int : 242 ms P-R-T Axes : * 79 203 degrees QTcB Int : 387 ms Atrial fibrillation with rapid ventricular response Nonspecific ST and T wave abnormality Abnormal ECG No previous ECGs available Confirmed by Rachael Haley (Marisa) on 09/13/2025 8:19:31 PM Referred By: Sierra Rivers Confirmed By: Rachael Haley
[2025-09-13] MEDS: AMITRIPTYLINE HCL 50 MG TAB PO SCH (20:29)
[2025-09-13] MEDS: APIXABAN 5 MG TABLET PO SCH (20:29)
[2025-09-14 07:15] LABS: Anion Gap 6.0 (3-11); Blood Urea Nitrogen 14.0 mg/dl (6-23); Calcium 8.7 mg/dl (8.6-10.3); Carbon Dioxide 29.0 mmol/L (21-32); Chloride 103.0 mmol/L (98-107); Creatinine Clr Calc Pharmacy 67.4 ml/min; Glucose 108.0 mg/dl (70-99(Fasting)); Magnesium 1.6 mg/dl (1.7-2.4); Potassium 4.0 mmol/L (3.5-5.1); Sodium 138.0 mmol/L (136-145)
[2025-09-14] MEDS: MAGNESIUM SULFATE / D5W 1 GM/100 ML BAG IV SCH (08:31)
[2025-09-14] MEDS: FUROSEMIDE INJ 20 MG/2 ML VIAL IV ONE (08:31)
[2025-09-14] MEDS: POTASSIUM CHLORIDE CRTAB 20 MEQ TABCR PO SCH (08:31)
[2025-09-14] MEDS: METOPROLOL SUCC 50MG EXT REL TAB PO SCH (08:32)
[2025-09-14] MEDS ORDERED: PENTOSAN POLYSULFATE SODIUM 100 MG PO SCH (09:00)
[2025-09-14] MEDS ORDERED: PROPOFOL IV EMULSION 10 MG/ML 20 ML VIAL IV ONE (09:15)
[2025-09-14] MEDS ORDERED: LIDOCAINE 2% 2 ML VIAL/AMP(20MG/ML) INFIL ONE (09:15)
--- NOTE | 2025-09-14 09:23 | Anesthesiology Consultation ---
Date of Service September 14, 2025 Assessment & Plan Chart Review Chart Review: Acceptable Risk for Surgery, Patient NOT seen in Pre Admission Testing and entry level buyer initiated Consults Requested none History Height/Weight Height: 5 ft 8 in Weight: 84.4 kg Allergies Allergy/AdvReac Type Severity Reaction Status Date / Time No Known Allergies Allergy Verified 09/09/25 14:08 Medications Home Medications Medication Instructions Recorded Confirmed Last Taken SpeediCath Standard - Lubricated #10 ea 05/11/22 09/13/25 Unknown 8/2.7 mm needle (disp) 18 G 18 gauge x 1 #120 ea 05/24/22 09/13/25 Unknown 1/2" (BD PrecisionGlide Non-Sterile) syringe with needle, safety 10 mL #50 ea 05/25/23 09/13/25 Unknown 21 gauge x 1 1/2" (Easy Touch SheathLock Syringe with Needle) sodium bicarbonate 4.2 % 0 meq UD 03/24/24 09/13/25 Unknown intravenous solution syringe (disposable) 10 mL (BD #120 ea 10/01/24 09/13/25 Unknown Luer-Renee Tip Control Syringe) syringe (disposable) 60 mL (Easy #100 ea 10/01/24 09/13/25 Unknown [place] Catheter Tip Syringe) sulfamethoxazole 800 1 tab PO BID PRN dental visit #60 12/05/24 09/13/25 Unknown mg-trimethoprim 160 mg tablet tabs (Bactrim DS) Vivelle-Dot 0.075 mg/24 hr 1 patch transdermal .TWICE WEEKLY 06/12/25 09/13/25 09/12/25 transdermal patch (estradiol) #8 ea methenam 118 mg-m.blue 10 See Rx Instructions .Route 08/05/25 09/13/25 09/13/25 mg-s.phos 40.8 mg-p.salic 36 .COMPLEX #30 caps mg-hyos capsule (Uro-MP) apixaban 5 mg tablet (Eliquis) 5 mg PO BID #60 tabs 08/11/25 09/13/25 09/13/25 08:00 oxycodone 20 mg tablet,crush 20 mg PO TID PRN pain (scale score 08/14/25 09/13/25 09/13/25 09:00 resistant,extended release 12 hr 7-10) #90 tabs amitriptyline 150 mg tablet 150 mg PO HS 09/13/25 09/13/25 09/12/25 cyclobenzaprine 10 mg tablet 10 mg PO HS PRN Muscle Spasm 09/13/25 09/13/25 Unknown dicyclomine 10 mg capsule 10 mg PO BID PRN Abdominal 09/13/25 09/13/25 Unknown Discomfort hydroxyzine HCl 50 mg tablet 50 mg PO DAILY PRN cystitis 09/13/25 09/13/25 Unknown lidocaine HCl 20 mg/mL (2 %) See Rx Instructions .Route .COMPLEX 09/13/25 09/13/25 Unknown injection solution meloxicam 15 mg tablet 15 mg PO DAILY PRN Pain 09/13/25 09/13/25 Unknown metoprolol succinate 50 mg 50 mg PO HS 09/13/25 09/13/25 09/12/25 tablet,extended release 24 hr pentosan polysulfate sodium 100 mg 100 mg PO QAM 09/13/25 09/13/25 09/13/25 capsule (Elmiron) pentosan polysulfate sodium 100 mg 200 mg PO HS 09/13/25 09/13/25 09/12/25 capsule (Elmiron) ropinirole 0.25 mg tablet 0.125 mg PO HS 09/13/25 09/13/25 09/12/25 Active Medications Generic Name Dose Route Start Last Admin Trade Name Jude PRN Reason Stop Dose Admin Amitriptyline HCl 150 mg 09/13/25 21:00 09/13/25 20:29 Amitriptyline Hcl 50 Mg Tab PO 10/13/25 20:59 150 mg HS KATELYNN Administration Apixaban 5 mg 09/13/25 21:00 09/14/25 08:33 Apixaban 5 Mg Tablet PO 10/13/25 20:59 5 mg BID KATELYNN Administration Diltiazem HCl 125 mg/ Dextrose 125 mls @ 7.5 mls/hr 09/13/25 18:30 09/14/25 08:32 IV 10/13/25 18:29 7.5 mg/hr .[id number] KATELYNN 7.5 mls/hr Administration Protocol 7.5 MG/HR Magnesium Sulfate/Dextrose 1 gm in 100 mls @ 50 mls/hr 09/14/25 08:00 09/14/25 08:31 Magnesium Sulfate / D5w IV 09/14/25 11:59 50 mls/hr Q2H KATELYNN Administration Metoprolol Succinate 50 mg 09/14/25 09:00 09/14/25 08:32 Metoprolol Succ 50mg Ext Rel Tab PO 10/14/25 08:59 50 mg QAM KATELYNN Administration Miscellaneous 1 each 09/14/25 00:00 09/14/25 08:32 Order Awaiting Action - Estradiol [Vivelle-Dot] 0.075 Mg/24 Hr Patch Semiweekly N/A 10/14/25 00:00 Not Given QS KATELYNN Miscellaneous 1 each 09/14/25 00:00 09/14/25 08:32 Order Awaiting Action - [place]-M.Blue-S.Peqh-Sedop-Bzg [Uro-Mp] N/A 10/14/25 00:00 Not Given QS KATELYNN Miscellaneous 1 each 09/14/25 00:00 09/14/25 08:32 Order Awaiting Action - Pentosan Polysulfate Sodium [Elmiron] 100 Mg Capsule N/A 10/14/25 00:00 Not Given QS KATELYNN Potassium Chloride 20 meq 09/14/25 09:00 09/14/25 08:31 Potassium Chloride Crtab 20 Meq Tabcr PO 10/14/25 08:59 20 meq QAM KATELYNN Administration Ropinirole HCl 0.125 mg 09/13/25 21:00 09/13/25 20:29 Ropinirole Hcl 0.25 Mg Tablet PO 10/13/25 20:59 0.125 mg HS KATELYNN Administration Past Medical History Medical History Acute systolic CHF (congestive heart failure) Interstitial cystitis History of postmenopausal HRT Arthritis Insomnia Hypertension Left lower lobe pulmonary nodule Chronic, continuous use of opioids Vasomotor symptoms due to menopause Atrial fibrillation No pertinent past medical history Past Family History Family History Aunt Breast cancer Mother , age 94 Myocardial infarction Hypertension Coronary heart disease CABG at age 59 Father Prostate cancer Diabetes Hypertension Sister Hypertension Valvular heart disease Grandfather (Paternal) Cancer Grandmother (Paternal) Cancer Denies family history of Ovarian cancer Colorectal cancer Past Surgical History Surgical History H/O wisdom tooth extraction S/P total knee arthroplasty S/P FRANNIE-BSO age 59 Hx of tonsillectomy Social History Smoking Status: Never smoker Do You Dip or Chew Tobacco: No Hx Alcohol Use: Yes Alcohol type: wine alcohol intake frequency: a few times a month Hx Substance Use: No Physical Exam Vital Signs Last Vital Signs Temp 36.7 C 09/14/25 07:06 Pulse 73 09/14/25 08:00 Resp 18 09/14/25 07:06 BP 125/81 09/14/25 07:06 Pulse Ox 93 09/14/25 07:06 O2 Del Method Room Air 09/14/25 07:06 Testing Laboratory Results 09/13/25 15:42 09/14/25 06:06 PT 12.6 Seconds (9.0-12.0) H 09/13/25 17:21 INR 1.2 (0.9-1.1) H 09/13/25 17:21 Urine Color Yellow 09/13/25 17:21 Urine Appearance Clear (Clear) 09/13/25 17:21 Urine pH 6.5 (4.5-7.5) 09/13/25 17:21 Ur Specific [place] 1.007 (1.000-1.030) 09/13/25 17:21 Urine Protein Negative (Negative) 09/13/25 17:21 Urine Glucose (UA) Negative (Negative) 09/13/25 17:21 Urine Ketones Negative (Negative) 09/13/25 17:21 Urine Nitrite Negative (Negative) 09/13/25 17:21 Ur Leukocyte Esterase Negative (Negative) 09/13/25 17:21 Electrocardiogram Date: 09/14/25 Findings: + AFIB @ Echocardiogram Date: 08/27/25 EF: 35-40 LV Function: normal moderately reduced RV fxn
--- NOTE | 2025-09-14 10:22 | Anesthesiology Progress Note ---
Date of Service September 14, 2025 Anesthesia Post Procedure Vital Signs Vital Signs: Temp Pulse Pulse Pulse Resp BP BP 09/14/25 10:15 60 18 125/74 09/14/25 10:01 63 18 120/99 09/14/25 09:45 74 18 138/91 09/14/25 08:00 73 09/14/25 07:06 36.7 C 67 18 125/81 09/14/25 04:09 36.6 C 77 20 130/78 09/13/25 23:31 36.7 C 86 20 125/83 09/13/25 20:10 130 H 129/90 09/13/25 19:10 36.7 C 128 H 18 170/75 H 09/13/25 18:33 129 H 17 135/104 H 09/13/25 17:00 129 H 17 135/104 H 09/13/25 16:13 116 H 09/13/25 15:45 09/13/25 15:30 106 H 16 132/100 09/13/25 15:18 122 H 12 121/96 09/13/25 15:17 121 H 121/96 09/13/25 15:17 133 H 135/106 H 09/13/25 15:06 133 H 135/106 H 09/13/25 14:53 147 H 156/123 H 09/13/25 14:47 143 H 21 09/13/25 14:33 36.7 C 139 H 18 145/109 H Pulse Ox O2 Del Method 09/14/25 10:15 94 Room Air 09/14/25 10:01 96 Room Air 09/14/25 09:45 96 Room Air 09/14/25 08:00 09/14/25 07:06 93 Room Air 09/14/25 04:09 93 Room Air 09/13/25 23:31 94 Room Air 09/13/25 20:10 09/13/25 19:10 96 Room Air 09/13/25 18:33 92 Room Air 09/13/25 17:00 92 Room Air 09/13/25 16:13 09/13/25 15:45 94 Room Air 09/13/25 15:30 97 Room Air 09/13/25 15:18 98 Room Air 09/13/25 15:17 09/13/25 15:17 09/13/25 15:06 09/13/25 14:53 09/13/25 14:47 09/13/25 14:33 95 Room Air Transfer of Care Handoff Completed per policy Notes Mental Status: alert / awake / arousable Patient Amnestic to Procedure: Yes Nausea / Vomiting: adequately controlled Pain: adequately controlled Airway Patency, RR, SpO2: stable & adequate BP & HR: stable & adequate Hydration State: stable & adequate Anesthetic Complications: no major complications apparent and Pt Satisfied with anesthetic care
--- NOTE | 2025-09-14 10:34 | Cardiology Consultation ---
Date of Consultation September 14, 2025 Assessment & Plan (1) Atrial fibrillation with rapid ventricular response: (2) Cardiomyopathy: (3) Mitral regurgitation: Plan 1. Atrial fibrillation: Rates appear to be well-controlled on her dose of diltiazem. However, given the opportunity we will plan a cardioversion today. Subsequent to cardioversion she can stay on her current dose of metoprolol succinate. Will see if her overall LV function returns to normal prior to more aggressive treatment of her cardiomyopathy. She can continue her current dose of Eliquis 5 mg twice daily. 2. Cardiomyopathy: Possibly related to longstanding high ventricular rates with atrial fibrillation. Hopefully with return to sinus rhythm we will see improvement. She will continue metoprolol succinate. Will reevaluate LV function in the outpatient setting and determine if more aggressive therapy is necessary. She appears well compensated on exam today. 3. Mitral regurgitation: Noted on her last echocardiogram. Will follow this over time. Likely functional. History of Present Illness Reason for Consultation: Atrial fibrillation Requesting Physician: Emanuel Attending Physician: Richard Castellanos MD History of Present Illness The patient is 80-year-old woman recently diagnosed with atrial fibrillation and a possibly associated cardiomyopathy. She was on outpatient anticoagulation and scheduled for an elective cardioversion due to symptoms of persistent atrial fibrillation, her cardiomyopathy and some elevated ventricular rates. She states that a few days leading up to her admission she was not feeling well. She did report some frequent sweats, mild dyspnea and exercise intolerance. Some dizziness at times. She continued to have a sense of palpitation. She presented to the hospital discovered to be in atrial fibrillation with higher ventricular rates. She was placed on a diltiazem infusion. She was scheduled for elective cardioversion this morning. At the time my interview she claims to be feeling well. No current chest pain. No breathing difficulty at rest. No dizziness or lightheadedness. Allergies Allergy/AdvReac Type Severity Reaction Status Date / Time No Known Allergies Allergy Verified 09/09/25 14:08 Home Medications Medication Instructions Recorded Confirmed Type SpeediCath Standard - Lubricated #10 ea 05/11/22 09/13/25 Rx 8/2.7 mm needle (disp) 18 G 18 gauge x 1 #120 ea 05/24/22 09/13/25 Rx 1/2" (BD PrecisionGlide Non-Sterile) syringe with needle, safety 10 mL #50 ea 05/25/23 09/13/25 Rx 21 gauge x 1 1/2" (Easy Touch SheathLock Syringe with Needle) sodium bicarbonate 4.2 % 0 meq UD 03/24/24 09/13/25 History intravenous solution syringe (disposable) 10 mL (BD #120 ea 10/01/24 09/13/25 Rx Luer-Renee Tip Control Syringe) syringe (disposable) 60 mL (Easy #100 ea 10/01/24 09/13/25 Rx [place] Catheter Tip Syringe) sulfamethoxazole 800 1 tab PO BID PRN dental visit #60 12/05/24 09/13/25 Rx mg-trimethoprim 160 mg tablet tabs (Bactrim DS) Vivelle-Dot 0.075 mg/24 hr 1 patch transdermal .TWICE WEEKLY 06/12/25 09/13/25 Rx transdermal patch (estradiol) #8 ea methenam 118 mg-m.blue 10 See Rx Instructions .Route 08/05/25 09/13/25 Rx mg-s.phos 40.8 mg-p.salic 36 .COMPLEX #30 caps mg-hyos capsule (Uro-MP) apixaban 5 mg tablet (Eliquis) 5 mg PO BID #60 tabs 08/11/25 09/13/25 Rx oxycodone 20 mg tablet,crush 20 mg PO TID PRN pain (scale score 08/14/25 09/13/25 Rx resistant,extended release 12 hr 7-10) #90 tabs amitriptyline 150 mg tablet 150 mg PO HS 09/13/25 09/13/25 History cyclobenzaprine 10 mg tablet 10 mg PO HS PRN Muscle Spasm 09/13/25 09/13/25 History dicyclomine 10 mg capsule 10 mg PO BID PRN Abdominal 09/13/25 09/13/25 History Discomfort hydroxyzine HCl 50 mg tablet 50 mg PO DAILY PRN cystitis 09/13/25 09/13/25 History lidocaine HCl 20 mg/mL (2 %) See Rx Instructions .Route .COMPLEX 09/13/25 09/13/25 History injection solution meloxicam 15 mg tablet 15 mg PO DAILY PRN Pain 09/13/25 09/13/25 History metoprolol succinate 50 mg 50 mg PO HS 09/13/25 09/13/25 History tablet,extended release 24 hr pentosan polysulfate sodium 100 mg 100 mg PO QAM 09/13/25 09/13/25 History capsule ([place]iron) pentosan polysulfate sodium 100 mg 200 mg PO HS 09/13/25 09/13/25 History capsule (Elmiron) ropinirole 0.25 mg tablet 0.125 mg PO HS 09/13/25 09/13/25 History Patient History Medical History Acute systolic CHF (congestive heart failure) Interstitial cystitis History of postmenopausal HRT Arthritis Insomnia Hypertension Left lower lobe pulmonary nodule Chronic, continuous use of opioids Vasomotor symptoms due to menopause Atrial fibrillation No pertinent past medical history Surgical History H/O wisdom tooth extraction S/P total knee arthroplasty S/P FRANNIE-BSO age 59 Hx of tonsillectomy Family History Aunt Breast cancer Mother , age 94 Myocardial infarction Hypertension Coronary heart disease CABG at age 59 Father Prostate cancer Diabetes Hypertension Sister Hypertension Valvular heart disease Grandfather (Paternal) Cancer Grandmother (Paternal) Cancer Denies family history of Ovarian cancer Colorectal cancer Social History (Updated 09/13/25 @ 20:04 by Richard Castellanos MD) Smoking Status: Never smoker Second Hand Exposure: No; Do You Dip or Chew Tobacco: No; Hx Alcohol Use: Yes Alcohol type: wine Alcohol Intake Frequency: Monthly or Less Hx Substance Use: No Preferred Language: Indonesian Communication Ability: Effective Visual Impairment: No Limitations Hearing Ability: Normal Security Systems Specialist Required: No Beliefs That Will Affect Care: None marital status: / Current Living Situation: Significant Other current occupational status: retired current occupation: used to work as a company secretary, 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 Physical Exam Physical Exam: She is alert and oriented x3. Mood affect appear normal. She answered all questions appropriately. HEENT: Sclerae are anicteric. Pupils are equal and reactive to light and accommodation. Extraocular movements were intact. Neuro: Cranial nerves intact Lungs: Lungs are clear to auscultation bilaterally. There are no rales wheezes or rhonchi. She has normal respiratory effort without use of accessory muscles. There is normal pulmonary excursion. Cardiac: The rhythm was irregular. S1 and S2 were normal. There are no murmurs on examination. The PMI was not markedly displaced on palpation. Abdomen: The abdomen was soft and nontender. Extremities: Patient has bilateral radial pulses that are equal in intensity. There is no evidence cyanosis or clubbing. Skin: There are no rashes noted on examination today. Results & Data Vital Signs (Past 12 Hours) Vital Signs Temp Pulse Pulse Resp BP Pulse Ox O2 Del Method 09/14/25 10:30 63 18 119/72 95 Room Air 09/14/25 10:15 60 18 125/74 94 Room Air 09/14/25 10:01 63 18 120/99 96 Room Air 09/14/25 09:45 74 18 138/91 96 Room Air 09/14/25 08:00 73 09/14/25 07:06 36.7 C 67 18 125/81 93 Room Air 09/14/25 04:09 36.6 C 77 20 130/78 93 Room Air 09/13/25 23:31 36.7 C 86 20 125/83 94 Room Air Laboratory Results Abnormal Lab Results 09/13/25 09/13/25 09/13/25 14:43 15:42 17:21 WBC 8.07 RBC 4.92 Hgb 14.7 Hct 44.8 MCV 91.1 MCH 29.9 MCHC 32.8 RDW Std Deviation 46.3 RDW Coeff of Ade[place] 14.0 Plt Count 191 MPV 12.3 Immature Gran % (Auto) 0.6 Neut % (Auto) 61.5 Lymph % (Auto) 25.8 [place] % (Auto) 9.9 Eos % (Auto) 1.5 Baso % (Auto) 0.7 Neut # (Auto) 4.96 Lymph # (Auto) 2.08 [place] # (Auto) 0.80 H Eos # (Auto) 0.12 Baso # (Auto) 0.06 Immature Gran # (Auto) 0.05 PT Cancelled 12.6 H INR Cancelled 1.2 H Sodium 137 Potassium 4.8 Chloride 104 Carbon Dioxide 26 Anion Gap 7 BUN 13 Creatinine 0.85 Est Cr Clr Drug Dosing 60.0 eGFR 69.65 BUN/Creatinine Ratio 15.3 Glucose 136 H Calcium 9.0 Magnesium 1.8 Total Bilirubin 0.8 AST 25 ALT 19 Alkaline Phosphatase 68 Troponin I High Sens 8.1 B-Natriuretic Peptide 502 H Total Protein 6.4 Albumin 4.0 Globulin 2.4 L Albumin/Globulin Ratio 1.7 Lipase 5 L TSH 2.068 Urine Color Yellow Urine Appearance Clear Urine pH 6.5 Ur Specific [place] 1.007 Urine Protein Negative Urine Glucose (UA) Negative Urine Ketones Negative Urine Blood Negative Urine Nitrite Negative Urine Bilirubin Negative Urine Urobilinogen Negative Ur Leukocyte Esterase Negative Urine Comment Adenovirus (PCR) Not Detected B. pertussis DNA (PCR) Not Detected B.parapertussis DNA PCR Not Detected C. pneumoniae DNA (PCR) Not Detected Coronavirus OC43 (PCR) Not Detected Coronavirus HKU1 (PCR) Not Detected Coronavirus 229E (PCR) Not Detected SARS-CoV-2 (PCR) Not Detected Coronavirus NL63 (PCR) Not Detected Human Metapneumovir PCR Not Detected Influenza Type A (PCR) Not Detected Influenza Type B (PCR) Not Detected M. pneumoniae (PCR) Not Detected Parainfluenza 1 (PCR) Not Detected Parainfluenza 2 (PCR) Not Detected Parainfluenza 3 (PCR) Not Detected Parainfluenza 4 (PCR) Not Detected RSV (PCR) Not Detected Entero/Rhino (PCR) Not Detected 09/14/25 06:06 WBC RBC Hgb Hct MCV MCH MCHC RDW Std Deviation RDW Coeff of [place] Plt Count MPV Immature Gran % (Auto) Neut % (Auto) Lymph % (Auto) [place] % (Auto) Eos % (Auto) Baso % (Auto) Neut # (Auto) Lymph # (Auto) [place] # (Auto) Eos # (Auto) Baso # (Auto) Immature Gran # (Auto) PT INR Sodium 138 Potassium 4.0 Chloride 103 Carbon Dioxide 29 Anion Gap 6 BUN 14 Creatinine 0.77 Est Cr Clr Drug Dosing 67.4 eGFR 78.42 BUN/Creatinine Ratio 18.2 Glucose 108 H Calcium 8.7 Magnesium 1.6 L Total Bilirubin AST ALT Alkaline Phosphatase Troponin I High Sens B-Natriuretic Peptide Total Protein Albumin Globulin Albumin/Globulin Ratio Lipase TSH Urine Color Urine Appearance Urine pH Ur Specific [place] Urine Protein Urine Glucose (UA) Urine Ketones Urine Blood Urine Nitrite Urine Bilirubin Urine Urobilinogen Ur Leukocyte Esterase Urine Comment Adenovirus (PCR) B. pertussis DNA (PCR) B.parapertussis DNA PCR C. pneumoniae DNA (PCR) Coronavirus OC43 (PCR) Coronavirus HKU1 (PCR) Coronavirus 229E (PCR) SARS-CoV-2 (PCR) Coronavirus NL63 (PCR) Human Metapneumovir PCR Influenza Type A (PCR) Influenza Type B (PCR) M. pneumoniae (PCR) Parainfluenza 1 (PCR) Parainfluenza 2 (PCR) Parainfluenza 3 (PCR) Parainfluenza 4 (PCR) RSV (PCR) Entero/Rhino (PCR) Diagnostic Findings Echocardiogram 08/27/2025: Ejection fraction 35 to 40%. Mild global hypokinesis. Moderate right atrial enlargement. Mildly reduced RV systolic function with a mildly dilated RV. Mild to moderate left atrial enlargement. Moderate mitral regurgitation. Elevated estimated pulmonary pressures of 30 to 40 mmHg. PG Care Time/CCT Total # of Minutes Spent Total Time Spent with Patient: Total time spent is greater than 50% in coordination of care (as documented) at patient's floor/unit and/or counseling patient: Coding Level of Care Code 22288 INT INP/OBS CARE 3/75MIN Diagnoses Atrial fibrillation with rapid ventricular response I48.91 Cardiomyopathy I42.9 Mitral regurgitation I34.0
--- NOTE | 2025-09-14 10:35 | Cardioversion ---
Date of Service September 14, 2025 PG Electrical Cardioversion Rp Electrical Cardioversion Report Procedure performed: Cardioversion Indication: The patient is a 80-year-old woman with a history of persistent atrial fibrillation Staff intellectual property paralegal: Hill Herring MD Procedure in detail: The patient was informed of the risks benefits and alternatives to the intended procedure. She understood such which proceed. She was taken to the cardiac catheterization suite holding area. A general anesthetic was administered by the Anesthesiology Service. Once appropriately anesthetized, the patient was cardioverted using 200 joules delivered in a biphasic fashion. This returned the patient to sinus rhythm. The patient tolerated procedure well, there were no immediate complications. Patient was neurologically intact subsequent to the procedure. Impression: Successful cardioversion from atrial fibrillation to normal sinus rhythm Coding Level of Care Code 83046 CARDIOVERSION, ELECTIVE Additional Codes Electrical Cardioversion Report ([id number])
[2025-09-14 11:36] VITALS: BP 121/76; RESP 16; TEMP 97.5; O2SAT 90
--- NOTE | 2025-09-14 12:56 | Electrocardiogram Report ---
Test Reason : Blood Pressure : */* mmHG Vent. Rate : 76 BPM Atrial Rate : * BPM P-R Int : * ms QRS Dur : 92 ms QT Int : 408 ms P-R-T Axes : * 81 192 degrees QTcB Int : 459 ms Atrial fibrillation T wave abnormality, consider lateral ischemia Abnormal ECG When compared with ECG of 13-Sep-2025 14:39, Vent. rate has decreased by 78 bpm Non-specific change in ST segment in Anterior leads Nonspecific T wave abnormality now evident in Anterior leads Confirmed by Hill Herring ([id number]) on 09/14/2025 12:56:01 PM Referred By: Sierra Rivers Confirmed By: Hill Herring
--- NOTE | 2025-09-14 17:35 | Communication Note ---
Date of Service: September 14, 2025 By CMS guidelines, a determination that the admission or continued stay is not medically necessary has been made by a member of the UR committee and gila mcpherson for this hospital stay, therefore a Code 44 will be completed and the Inpatient admission will be changed to outpatient.
--- NOTE | 2025-09-14 17:36 | Communication Note ---
Date of Service: September 14, 2025 By CMS guidelines, a determination that the admission or continued stay is not medically necessary has been made by a member of the UR committee and a kristine mcpherson for this hospital stay, therefore a Code 44 will be completed and the Inpatient admission will be changed to outpatient. Richard Castellanos MD Attending physician
[2025-09-14 18:20] VITALS: PULSE 80
--- NOTE | 2025-09-19 21:39 | Discharge Summary ---
Discharge Summary Date of Service date of admission - September 13, 2025 date of discharge - September 14, 2025 Principal Dx & Hospital Course #1 = Principal Diagnosis (1) Atrial fibrillation with rapid ventricular response: (2) Acute systolic CHF (congestive heart failure): (3) Hypertension: (4) Interstitial cystitis: (5) Night sweats: Plan Pleasant 80yo female with recently diagnosed atrial fibrillation on 08/11/25 at her PCP's office - anticoagulated with Eliquis also starting 08/11/25, newly- found systolic CHF with EF 35-40% on echo 08/27/25, interstitial cystitis, chronic narcotic dependence, pre-DM with a1c of 5.8%, and HTN who presents from home with worsening dyspnea, dyspnea on exertion, orthopnea, severe night-sweats x 4 days, weight gain of 12-15 pounds over the last 2-3 months, abdominal swelling, and palpitations. The 08/11/25 office note states she had been having palpitations for several weeks prior to that visit as well as fatigue/dyspnea. #a.fib with RVR - -had been taking Eliquis since 08/11/25 after the a.fib was first diagnosed by her PCP -was initially on diltiazem CD starting late July, but once echo showed depressed EF in early August she was changed to meto succ 50mg daily -she was scheduled for outpatient elective cardioversion on 09/22/25 -she had a recent outpatient Holter monitor showing 100% a.fib burden with poor rate control, sometimes with HRs as high as 170s -suspect the uncontrolled a.fib is the cause of her cardiomyopathy/depressed EF -upon presentation her a.fib rates were >150 -despite IV lopressor & meto succ 50mg her rates remained 120s to 150s at rest -as a temporary measure placed on diltiazem drip to achieve better rate control -Eliquis was continued -[facility] Cardiology was consulted, and on the AM of 09/14 she underwent successful cardioversion by Dr Jax Herring with quaker of [facility] -she remained in [facility] for the remainder of her brief stay -of note - TSH, K, and mag were all wnl while hospitalized -if a.fib was to return could consider a.fib ablation -she will continue meto succ + Eliquis as previous #acute systolic CHF - -outpatient echo 2 weeks prior to admission with EF 35-40% -suspect her cardiomyopathy is 2nd to uncontrolled a.fib -she does have a family history of CAD thus cannot fully rule out ischemia contributing to the depressed EF -clinically & radiographically had evidence of decompensated CHF upon admission -received IV lasix for such with improved volume status -at discharge recommended 2 additional days of oral lasix, followed by PRN lasix for weight gains -cont meto succ daily -ideally she is initiated on Entresto in the near-future; can be done in the outpatient setting #night-sweats - -I suspect this symptom was induced by the severe tachycardia from her a.fib -suspect that her rates at home had been >150 much of the time in the days leading up to admission -the 3-4 days before admission were the only days she has had sweats; she does not have chronic night-sweats -she did not have any infectious symptoms -resp BioFire negative -could the sweats be a symptom of ischemia? -I do think, given her mother's CAD, that at some point she should have ischemic work-up with stress test -would also be helpful to rule out CAD as the cause of her cardiomyopathy -fortunately her troponin was negative despite numerous days of symptoms #interstitial cystitis - -cont all of her usual medicines for such #chronic narcotic dependence - -Oxycontin ER 20mg TID prn #HTN - -cont meto succ -BP 121/76 just prior to discharge Notes For Next Care Provider consider outpatient stress test to rule out CAD as a cause of her cardiomyopathy and recent severe night-sweats Medication Changes From Visit START Eliquis 5mg BID START lasix 20mg as directed START mag oxide daily prn (when lasix is taken) START potassium chloride 20meq daily prn (when lasix is taken) MOVE meto succ 50mg to the morning Admission HPI Per Admitting Provider Pleasant 80yo female with recently diagnosed atrial fibrillation on 08/11/25 at her PCP's office (on anticoagulation with Eliquis also starting 08/11/25), newly-found systolic CHF with EF 35-40% on echo 08/27/25, interstitial cystitis, chronic narcotic dependence, pre-DM with a1c of 5.8%, and HTN who presents from home with worsening dyspnea, dyspnea on exertion, orthopnea, severe night-sweats x 4 days, weight gain of 12-15 pounds over the last 2-3 months, abdominal swelling, and palpitations. The 08/11/25 office note states she had been having palpitations for several weeks prior to that visit as well as fatigue/dyspnea. Ms Keene was referred to [facility] Cardiology and she was recently switched from diltiazem to metoprolol succinate after her EF was found to be depressed. She is not on diuretics at home. An elective cardioversion was planned for September 22 here at [facility] for the a.fib. Despite the severe sweats she has been eating fine and denies any fevers or rigors. Denies discrete chest pain episodes although she does have palpitations quite routinely from the a.fib. She reports good compliance with her Eliquis twice daily. Discharge Exam gen - sitting in chair, NAD, looks well HENT - MMM neck - JVD resolved heart - RRR, s1 s2, no murmur lungs - b/l basilar rales much improved; just scant rales remaining in the bases; no wheezes, no increased work of breathing abd - soft NT ND BS+ ext - left leg is larger than right leg, no edema b/l; pulses b/l feet 2+ psych - a/o x 3 Discharge Plan Discharge Items Patient Disposition: Home - Self-Care Reason For Visit: RAPID ATRIAL FIBRILLATOIN; ACUTE SYSTOLIC CHF Discharge Diagnosis: 1. rapid atrial fibrillation - resolved with cardioversion 2. acute systolic congestive heart failure with fluid build-up in the lungs - latter much improved -congestive heart failure likely due to uncontrolled atrial fibrillation 3. night-sweats 4. interstitial cystitis Activity: As commented below Activity Comment: would avoid heavy exertional activity until seen by cardiology Non-emergency contact: Primary Care Provider and [employer] Call non-emergency contact if: you have any medication questions and your symptoms worsen Follow-up/Referrals: Jerome Aaron DO [Primary Care Provider] - 09/21/25 9:20 am (PCP follow up: 09/21 9:20am with Dr. Aaron) Bianka Villela CRNP [Nurse Practitioner] - 09/24/25 10:30 am (Cardio follow up: 09/24 10:30am) Diet: Heart Healthy Fluids: 1800ml (7 cups) Addtl Attending Provider Instructions: Ms Keene, You were hospitalized due to rapid atrial fibrillation ("afib") as well as fluid build-up in the lungs. Both the afib itself and the fluid build-up can cause shortness of breath. The fluid build-up was due to congestive heart failure. Your symptoms improved with controlling the afib as well as giving you diuretic medicine called furosemide. The furosemide removes the unwanted fluid from the lungs. Dr Hill Herring from [facility] performed cardioversion on 09/14/25. This was successful at restoring normal heart rhythm. Following the cardioversion you stayed in normal rhythm until time of discharge. Recommendations: 1. please move the timing of your metoprolol succinate from bedtime to EVERY MORNING. Start tomorrow morning, 09/15. 2. furosemide diuretic - -take 20mg the AM of 09/15 -take 20mg the AM of 09/16 -then, 09/17 and thereafter, just use the furosemide NEEDED for weight gain or worsening edema 3. when you take furosemide you will have to take a magnesium supplement and potassium supplement with it. If you are not taking the furosemide diuretic you can skip the magnesium/potassium. 4. weigh yourself EVERY MORNING on the same scale after using the bathroom. Keep a log of your weights. If you gain more than 2-3 pounds over a 1-2 day period this is often one of the first signs of fluid retention from congestive heart failure. If you gain weight according to these parameters please start the furosemide. Take the furosemide daily until your weight is back down to your "dry weight." Dry weight is your weight when you are not retaining any excess fluid. Once you are back to your dry weight you can stop the furosemide. Your heart doctors will help you determine your optimal dry weight. 5. try to check your blood pressure and heart rate on a daily basis at home. If you don't have a blood pressure cuff please purchase one. Try to get a cuff that goes on the upper portion of the arm. Many of the electronic cuffs also tell you your heart rate. Keep a log of your blood pressures & heart rates. 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 As a rule of thumb, if you note that your heart rate is consistently over 100 beats/minute I would assume that you may be back in afib. 6. please talk to cardiology about getting a formal stress test (or even a cardiac catheterization) to rule out coronary artery disease. Coronary artery disease occurs when there are blockages/plaque build-up in the arteries of the heart. Follow-up appointments: see separate section. Return to [facility] if - -you have concerns that you are back in afib or your heart rate is consistently over 100 -you are short of breath -you have chest pains -any other concerns It was our pleasure to care for you! -Richard Castellanos, hospitalist [employer] Provider Instructions: Congestive Heart Failure Instructions: Call 911 and go to the Emergency Room if: * You have tightness or pain in your chest that does not go away with rest or Nitroglycerin * You are very short of breath even with rest Call your doctor if any of the following symptoms or problems start or get worse: * Shortness of breath or difficulty breathing * Wake up at night short of breath * Chest pain * Cough * Swelling of your hands, fee, or legs * More fatigued or tired with your normal activity * Palpitations - sudden fast heart beats WEIGHT * Weigh yourself every morning after using the bathroom. * Use the same scale. * Wear the same amount of clothing. * Write your weight down on your chart. * Call your doctor if you gain more than 2-3 pounds in 1-2 days. MEDICATIONS * Use this discharge instruction sheet for instructions. * Take your medications at the time your doctor ordered. * Do not skip a dose of your medicines. * If you miss a dose of medicine, take as soon as possible, but DO NOT DOUBLE A DOSE. * Read your medicine information when you get home. * Know all of the side effects of your medicine. * Call your doctor's office if you have any side effects. * Be sure all of your doctors know what medicine and herbs you take (including cold, flu, and herbal medicine). * Pain Medicine: If you do not get relief from your pain, please call your doctor for help. Take the following with you to your follow-up doctor appointments: * Weight Chart * Medication List * List of questions Do not drink excessive alcohol, beer or wine. Pending Studies at Discharge: No Stand-Alone Forms: [facility] Care Team Connect, Smoking Cessation Medications and DC Order Prescriptions: New furosemide [Lasix] 20 mg tablet 20 mg PO QAM PRN (Reason: edema) Qty: 30 0RF magnesium oxide 400 mg magnesium tablet 400 mg PO DAILY PRN (Reason: for when you take furosemide diuretic) Qty: 30 0RF potassium chloride 20 mEq tablet extended release 20 meq PO DAILY PRN (Reason: for when you take furosemide diuretic) Qty: 30 0RF Continued (DME) SpeediCath Standard - Lubricated 8/2.7 mm See Rx Instructions .Route .MEDSUPPLY Qty: 10 3RF Rx Instructions: As directed (DME) BD PrecisionGlide Non-Sterile 18 gauge x 1 1/2" needle See Rx Instructions .Route Qty: 120 0RF Rx Instructions: use twice daily (DME) BD Luer-Renee Tip Control Syring 10 mL syringe See Rx Instructions .Route Qty: 120 0RF Rx Instructions: twice daily (DME) syringe (disposable) [Easy [place] Catheter Tip Syring] 60 mL syringe See Rx Instructions .Route Qty: 100 3RF Rx Instructions: NEEDED OR DIRECTED estradiol [Vivelle-Dot] 0.075 mg/24 hr patch semiweekly 1 patch transdermal .TWICE WEEKLY Qty: 8 0RF Uro-MP 118-10-40.8-36 mg capsule See Rx Instructions .ROUTE .COMPLEX Qty: 30 3RF Dose Instruction: TAKE ONE CAPSULE BY MOUTH THREE TIMES A DAY NEEDED FOR BLADDER PAIN. ADMNISTER WITH PLENTY OF FLUIDS Rx Instructions: TAKE ONE CAPSULE BY MOUTH THREE TIMES A DAY NEEDED FOR BLADDER PAIN. ADMNISTER WITH PLENTY OF FLUIDS (DME) Easy Touch SheathLock Syrg-Ndl 10 mL 21 gauge x 1 1/2" syringe See Rx Instructions .Route Qty: 50 3RF Rx Instructions: USE NEEDED OR DIRECTED sodium bicarbonate 4.2 % solution 0 meq UD Rx Instructions: used vaginally sulfamethoxazole-trimethoprim [Bactrim DS] 800-160 mg tablet 1 tab PO BID PRN (Reason: dental visit) Qty: 60 11RF Eliquis 5 mg tablet 5 mg PO BID Qty: 60 2RF hydroxyzine HCl 50 mg tablet 50 mg PO DAILY PRN (Reason: cystitis) ropinirole 0.25 mg tablet 0.125 mg PO HS dicyclomine 10 mg capsule 10 mg PO BID PRN (Reason: Abdominal Discomfort) cyclobenzaprine 10 mg tablet 10 mg PO HS PRN (Reason: Muscle Spasm) amitriptyline 150 mg tablet 150 mg PO HS meloxicam 15 mg tablet 15 mg PO DAILY PRN (Reason: Pain) Elmiron 100 mg capsule 200 mg PO HS Elmiron 100 mg capsule 100 mg PO QAM lidocaine HCl 20 mg/mL (2 %) solution See Rx Instructions .ROUTE .COMPLEX Rx Instructions: used vaginally Changed metoprolol succinate 50 mg tablet extended release 24 hr 50 mg PO QAM Qty: 0 0RF No Action oxycodone 20 mg tablet,oral only,ext.rel.12 hr 20 mg PO TID PRN (Reason: pain (scale score 7-10)) Qty: 90 0RF Hold Instructions: Home Medication placed on hold at Doctor's office Discharge Orders: Discharge Order (Routine); Ordered 09/14/25 Ordered By: Richard Hubbard/Other Patient Handouts: What Is Heart Failure, Low-Salt Choices, AFib Preventing Stroke, AFib Admission Data Admit Date/Time: 09/13/25 17:40 Attending Provider: Richard Castellanos Admit Provider: Richard Castellanos Primary Care Provider: Jerome Aaron Other Providers: Hill Herring Other Interventions: Discharge Summary Assessment (RN) Last Done: 09/14/25 18:19 Hospital Stay Data Consultations [facility] Procedures Performed Operation Date: 09/14/25 10:30 Actual Procedures Cardioversion - Hill Herring MD Diagnostic Imagining Performed Chest X-Ray 09/13/25 14:37 Exam: AP Portable Chest Exam reason: Nonspecific chest pain Comparison: No prior examinations available for comparison Technique: A single AP portable view of the chest was obtained Findings: The lungs are well-expanded. There is mild acute prominence of the central pulmonary vasculature. There is mild cardiomegaly. The cardiac and mediastinal silhouettes are within normal limits. There is no pneumothorax and no acute bony abnormalities are seen. Impression: 1. CHF exacerbation. 2. Small bilateral pleural effusions. Electronically signed by Chirag Beck 09-13-2025 3:42 PM Venous Doppler Study 09/13/25 15:56 EXAMINATION: Extremity ultrasound lower extremity LEFT CLINICAL HISTORY: Left lower extremity swelling and left calf PRIORS: None TECHNIQUE: Ultrasound interrogation of the deep venous structures was performed with grayscale, color Doppler, compression and augmentation. FINDINGS: The left common femoral, superficial femoral, saphenous, popliteal and tibial veins demonstrate normal compressibility, frequency and augmentation. IMPRESSION: No sonographic evidence of deep venous thrombosis in the LEFT lower extremity Electronically signed by Talia Mcadams 09-13-2025 5:52 PM Pending Results Patient Have Any Pending Studies at Discharge: No Discharge Instructions Given to Patient (Per Discharging Provider) Ms Keene, Nik were hospitalized due to rapid atrial fibrillation ("afib") as well as fluid build-up in the lungs. Both the afib itself and the fluid build-up can cause shortness of breath. The fluid build-up was due to congestive heart failure. Your symptoms improved with controlling the afib as well as giving you diuretic medicine called furosemide. The furosemide removes the unwanted fluid from the lungs. Dr Hill Herring from [facility] performed cardioversion on 09/14/25. This was successful at restoring normal heart rhythm. Following the cardioversion you stayed in normal rhythm until time of discharge. Recommendations: 1. please move the timing of your metoprolol succinate from bedtime to EVERY MORNING. Start tomorrow morning, 09/15. 2. furosemide diuretic - -take 20mg the AM of 09/15 -take 20mg the AM of 09/16 -then, 09/17 and thereafter, just use the furosemide NEEDED for weight gain or worsening edema 3. when you take furosemide you will have to take a magnesium supplement and potassium supplement with it. If you are not taking the furosemide diuretic you can skip the magnesium/potassium. 4. weigh yourself EVERY MORNING on the same scale after using the bathroom. Keep a log of your weights. If you gain more than 2-3 pounds over a 1-2 day period this is often one of the first signs of fluid retention from congestive heart failure. If you gain weight according to these parameters please start the furosemide. Take the furosemide daily until your weight is back down to your "dry weight." Dry weight is your weight when you are not retaining any excess fluid. Once you are back to your dry weight you can stop the furosemide. Your heart doctors will help you determine your optimal dry weight. 5. try to check your blood pressure and heart rate on a daily basis at home. If you don't have a blood pressure cuff please purchase one. Try to get a cuff that goes on the upper portion of the arm. Many of the electronic cuffs also tell you your heart rate. Keep a log of your blood pressures & heart rates. 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 As a rule of thumb, if you note that your heart rate is consistently over 100 beats/minute I would assume that you may be back in afib. 6. please talk to cardiology about getting a formal stress test (or even a cardiac catheterization) to rule out coronary artery disease. Coronary artery disease occurs when there are blockages/plaque build-up in the arteries of the heart. Follow-up appointments: see separate section. Return to [facility] if - -you have concerns that you are back in afib or your heart rate is consistently over 100 -you are short of breath -you have chest pains -any other concerns It was our pleasure to care for you! -Richard Castellanos, hospitalist Total Time Total Time Spent Total Time Spent (In Minutes): 45 Coding Level of Care Code 45515 INP/OBS DISCH >30 MIN Diagnoses Atrial fibrillation with rapid ventricular response I48.91 Acute systolic CHF (congestive heart failure) I50.21 Primary hypertension I10 Hypertension type: primary hypertension Interstitial cystitis N30.10 Night sweats R61
== END 2025-09-14 18:20 | disposition home or self-care (01) | DRG 308 ==
LOC: ED 14:32 → INTOOBSV 17:40 → 2S 17:40